=== PATIENT | female | born 1965 | race Hispanic/Latino ===

== ENCOUNTER → 2020-05-10 | Outpatient (CLI) | payer OTHER ==
[~2020-05-10] MED LIST: COVID-19 VACC, MRNA(MODERNA)/PF 100 MCG/0.5 ML VIAL IM ONE
== END ==
LOC: VACCPMC 17:00
DX: Z23 Encounter for immunization (principal); Z20.822 Contact with and (suspected) exposure to COVID-19

== ENCOUNTER → 2020-06-13 | Outpatient (CLI) | payer OTHER | END | DRG 951 | LOC: VACCPMC 09:29 | DX: Z23 Encounter for immunization (principal); Z20.822 Contact with and (suspected) exposure to COVID-19 | CPT/HCPCS: 0012A; 91301 ==

== ENCOUNTER 2024-04-10 23:56 | Emergency (ER) | payer BC, OTHER ==
[~2024-04-10] VITALS: Ht 157.5 cm; Wt 102.5 kg
[2024-04-11 00:19] VITALS: PULSE 79; RESP 18; TEMP 98.7
[2024-04-11] MEDS: CEFTRIAXONE 1 GM VIAL IM ONE (01:44)
[2024-04-11] MEDS ORDERED: CLEOCIN HCL150 MG PO (01:55)
[2024-04-11 02:21] VITALS: BP 129/66; PULSE 71; RESP 16; TEMP 98.3; O2SAT 98
== END 2024-04-11 02:10 | disposition home or self-care (01) ==
LOC: FSED 04-11 00:16
DX: L03.115 Cellulitis of right lower limb (principal); W10.8XXA Fall (on) (from) other stairs and steps, initial encounter; Y93.01 Activity, walking, marching and hiking; Y92.89 Other specified places as the place of occurrence of the external cause
CPT/HCPCS: 93971; 99283; J0696